=== PATIENT | female | born 1955 | race Caucasian/White ===

== ENCOUNTER 2024-09-06 18:42 | Emergency (ER) | payer MEDICARE, SELFPAY ==
[2024-09-06] VITALS (12 sets, daily range): BP systolic 144–186; BP diastolic 72–103; PULSE 72–94; BMI 21.5
[2024-09-06 19:05] LABS: % Basophils 0.7 % (0-2); % Eosinophils 3.8 % (0-6); % Immature Granulocytes 0.3 % (0-0.5); % Lymphocytes 20.7 % (20.5-51.1); % Neutrophils 70.5 % (42.2-75.2); Absolute Basophils 0.1 10^3/uL (0-0.2); Absolute Eosinophils 0.4 10^3/uL (0-0.7); Absolute Monocytes 0.4 10^3/uL (0.1-0.6); Absolute Neutrophils 6.6 10^3/uL (1.4-6.5); Hematocrit 44.8 % (37.0-47.0); Hemoglobin 15.5 g/dL (12.0-16.0); Mean Corp Hgb Conc. 34.6 g/dL (33.0-37.0); Mean Corpuscular Volume 83.9 fL (81.0-99.0); Mean Platelet Volume 9.2 fL (7.4-10.4); Nucleated Red Blood Cells % 0 %; Platelet Count 230 10^3/uL (130-400); Red Blood Cell Count 5.34 10^6/uL (4.20-5.40); Red Cell Dist. Width 13.1 % (11.5-14.5); White Blood Cell Count 9.4 10^3/uL (4.8-10.8)
[2024-09-06 19:20] LABS: ALT (SGPT) 17 U/L (0-35); AST (SGOT) 26 U/L (14-36); Albumin 4.9 g/dl (3.5-5.0); Alkaline Phosphatase 77 U/L (38-126); Blood Urea Nitrogen 8 mg/dl (7-17); Carbon Dioxide 26 mmol/L (22-30); Chloride 105 mmol/L (98-107); Glucose 108 mg/dl (70-99); Potassium 4.5 mmol/L (3.5-5.1); Sodium 139 mmol/L (135-145); Total Bilirubin 0.7 mg/dl (0.2-1.3); Total Protein 8.7 g/dl (6.3-8.2); eGFR > 60.00
[2024-09-06 19:27] LABS: Troponin I < 0.012 ng/ml
[2024-09-06 22:26] LABS: Urine Albumin 1+ (Neg - Trace); Urine Bilirubin Negative (Negative); Urine Character Clear (Clear); Urine Color Yellow; Urine Glucose Negative (Negative); Urine Ketone 3+ (Negative); Urine Leukocyte 3+ (Negative); Urine Nitrite Negative (Negative); Urine Occult Blood 2+ (Negative); Urine Specific Gravity 1.015 (<1.030); Urine Urobilinogen Negative (Neg - 1+)
[2024-09-06] MEDS: NSS 1000 IV (22:30)
[2024-09-06 22:35] LABS: Urine Urothelial Cell 16-20 /LPF (FEW)
[2024-09-06 22:36] LABS: Urine White Cell 26-30 /HPF (0-5)
[2024-09-06 22:37] LABS: Urine Bacteria Few (Negative); Urine Mucus Moderate
--- NOTE | 2024-09-06 22:43 | ED.GENMED ---
History of Present Illness
General
Chief Complaint: Blood Pressure Problem
Source: patient and family (Daughter at bedside)
Exam Limitations: none
Time Seen by Provider: 09/06/24 21:26
Nursing documentation reviewed up to this point in time: agreed with
History of Present Illness
History of Present Illness:
The patient is a 68-year-old female presenting for evaluation of high blood pressure at home. The symptoms began this morning, and she describes her blood pressure as 180/90 mmHg at home. She typically does not monitor her blood pressure daily but
did so today due to not feeling well. She reports feeling generally weak, and reports having a headache along with feeling nauseous this morning. She also reports a few episode of diarrhea today. She also describes an sensation of
dizziness/lightheadedness.
However�by my assessment�patient states symptoms have completely resolved. She states she feels completely improved and denies any lingering headache, dizziness, nausea.
Today�patient denies any associated fever, chest pain, shortness of breath, or abdominal pain. She has no numbness/tingling or focal weakness. She has no tearing back pain or visual changes. She denies any dysuria.
Over the last two weeks, the patient has experienced some generalized weakness.
Patient denies any known sick contacts.
Patient states that she does not regularly check her blood pressure. She has no documented history of hypertension
Review of Systems
Review of Systems
Allergies reviewed?: Yes
All Other Systems: ROS reviewed and negative except as documented in HPI and ROS
Phy Exam
Physical Exam
Physical Exam:
Vitals: Hypertensive, otherwise vital signs stable. Afebrile
General: Patient is well appearing, no acute distress
Skin: Warm and dry, no rashes or lesions
Head: Normocephalic, atraumatic
Eyes: Sclera nonicteric. EOMs intact. Pupils equal round and reactive bilaterally. No nystagmus.
Throat: Protecting airway
Neck: Normal ROM, no cervical spine tenderness, no meningismus
Cardiac: Regular rate and rhythm, no murmurs.
Pulm: Normal respiratory effort, no wheezes, rales, rhonchi heard on exam
.
Abdomen: Abdomen soft and nontender. No rebound tenderness or guarding. Negative Lindquist sign.
Extremities: No evidence of cyanosis or edema. Strength 5/5 in bilateral upper and lower extremities.
Neuro: AAOx3. CN II-XII grossly intact on examination. No focal neurologic deficits. No facial droop or asymmetry. Fluid speech. Steady gait.
Psychiatric: Normal affect.
Course
Orders/Labs/Results
Orders:
Orders
09/06/24 18:46
ECG [Electrocardiogram (*1)] Urgent
Reason for Study: Hypertension, Benign
EKG- Treatment ONCE
09/06/24 18:56
Complete Blood Count/With Diff Urgent
Comprehensive Metabolic Panel Urgent
Troponin I Urgent
09/06/24 21:47
Orthostatic VS- Treatment ONCE
09/06/24 22:02
0.9% Sodium Chloride 1000 ml [Nss] 1,000 ml IV BOLUS
09/06/24 22:06
Urinalysis Reflex To Culture Urgent
Date Specimen was Collected: 09/06/24
Time Specimen was Collected: 22:03
Urine Microscopic Reflex Cult Urgent
Urine Culture Urgent
MANUELITO Source: U
Specimen Description:
Date Specimen was Collected: 09/06/24
Time Specimen was Collected: 22:03
Abnormal Lab Results
09/06/24 09/06/24
18:56 22:06
Absolute Neuts (auto) 6.6 H 10^3/uL
(1.4-6.5)
Glucose 108 H mg/dl
(70-99)
Total Protein 8.7 H g/dl
(6.3-8.2)
Urine Ketones 3+ A
(Negative)
Ur Occult Blood Reflex 2+ A
(Negative)
Leukocyte Esterase Rfl 3+ A
(Negative)
Urine RBC 3-6 A /HPF
(0-2)
Urine WBC (Reflex) 26-30 A /HPF
(0-5)
Urine Bacteria (Reflex) Few A
(Negative)
Urine Albumin (Reflex) 1+ A
(Neg - Trace)
09/06/24 18:56
09/06/24 18:56
Vital Signs
Initial and Last Documented VS:
Initial Vital Signs
Pulse Resp BP Pulse Ox
89 16 170/103 95
09/06/24 18:43 09/06/24 18:43 09/06/24 18:43 09/06/24 18:43
Last Documented Vital Signs
Temp Pulse Resp BP Pulse Ox
97.7 F 75 20 173/87 98
09/06/24 21:22 09/06/24 23:45 09/06/24 23:45 09/06/24 23:43 09/06/24 23:45
MDM/Problems Addressed
Differential Diagnosis Includes:
Not limited to: Asymptomatic hypertension, dehydration, electrolyte abnormalities, orthostatic hypotension, viral illness, UTI, etc.
MDM/Problems Addressed:
68 y.o female who presents with elevated pressure readings at home, generalized weakness, headache, and diarrhea x 1 day. Symptoms have mostly resolved by my assessment in the ED. She describes headache as gradual onset without other associated
neurologic symptoms. No fever, abdominal pain, or vomiting. No chest pain or shortness of breath. Patient hypertensive on arrival with otherwise stable vitals signs. Physical exam as above. She is very well appearing, in no apparent distress. No
focal neurologic deficits noted. Abdomen benign.
Differential broad although considerations include viral illness, electrolyte abnormalities, acute dehydration, hypertensive emergency, etc.
Labs obtained prior to my evaluation reviewed. CBC and chemistry without any significant abnormalities. Troponin undetectable. EKG without acute ischemic changes. UA somewhat equivocal for infection however favor contamination - will hold abx given
patient without urinary complaints. Very low suspicion for acute intra-abdominal infection given patient afebrile, with no white count, no abdominal pain, and benign abdominal exam. Patient has remained hypertensive to 170s/80s although she is now
asymptomatic and states that she feels completely better. No evidence of end organ damage on exam.
She was found to be somewhat orthostatic and given 1L IVF with improvement in ortho vital signs and symptoms.
Patient is very well appearing and her symptoms have improved. Symptoms possibly somewhat related to orthostasis +/- viral illness. Do not suspect central process or acute infectious process. No evidence of hypertensive emergency. Feel stable for
discharge home w/ PCP f/u as she may need to begin tx for hypertension. Advised to stay well hydrated. Strict return precautions discussed. Patient comfortable with plan.
Chronic conditions affecting care:
N/A
Acute Exacerbation and/or Progression of Chronic Illness:
N/A
*Pulse Oximetry
SaO2: 97
Oxygen Mode of Delivery: Room air
Patient hypoxic: no
*EKG
Interpreted by ED Provider?: Yes
EKG Intrepretation Date: 09/06/24
Interpretation: abnormal
Comparison EKG: no changes
Heart Rate: 86
Rate: normal
Rhythm: sinus
[place]: normal axis
Interval: normal QT interval
QRS Pattern: normal QRS
Ischemia: non-specific ST changes
*Photo Print Specialist Interpretation
Rate: normal
Interpretation: normal
Heart Rate: 76
Rhythm: sinus
*Critical Care Note
Total Time (30-74mins, 75-104mins- exclusive of procedures): Not Applicable
Patient Management
Escalation/DeEscalation of care consider admission/obs:
Admit not indicated
ED Attending Note
-
Portions of this chart may have been created with voice recognition software.� Occasional wrong word or��sound alike� substitutions may have occurred due to the inherent limitations of voice recognition software.
Discharge Plan
Departure
Patient Disposition: Home (Routine Discharge)
Date of Disposition: 09/06/24
Time of Disposition: 23:57
Patient with high blood pressure during this ER visit?: Yes
Condition: Good
Covid-19: Not Applicable
Discharge Problem:
Hypertension, Diarrhea
Instructions: High Blood Pressure (DC), Weakness - ED discharge instructions, BLOOD PRESSURE
Prescriptions:
No Action
fluticasone propion-salmeterol [Wixela Inhub] 100-50 mcg/dose blister with device
1 inh INHALATION R BID
ipratropium bromide 17 mcg/actuation Hfa Aerosol Inhaler
2 puff INHALATION R BID
NAC
1 tab PO DAILY PRN (Reason: supplement)
Vitamin C
1 tab PO DAILY PRN (Reason: supplement)
Vitamin D3
1 tab PO DAILY PRN (Reason: supplement)
magnesium
1 tab PO DAILY PRN (Reason: supplement)
zinc
1 tab PO DAILY PRN (Reason: supplement)
guaifenesin 600 mg Tablet Extended Release 12hr
600 mg PO Q12 Qty: 30 0RF
doxycycline hyclate 100 mg Capsule
100 mg PO Q12 Qty: 10 0RF
methylprednisolone [Medrol (Avtar)] 4 mg tablets,dose pack
See Rx Instructions .ROUTE .COMPLEX Qty: 21 0RF
Rx Instructions:
orally per package directions
Referrals:
UNKNOWN - PT DOES,NOT KNOW [Family Provider]
Activity Restrictions/Additional Instructions:
RETURN TO THE EMERGENCY DEPARTMENT WITH ANY FEVERS, CHILLS, SEVERE HEADACHE, SEVERE BACK PAIN, CHEST PAIN OR SHORTNESS OF BREATH, NUMBNESS/TINGLING EXTREMITIES, SIGNIFICANT WEAKNESS, CHANGES IN VISION, CHANGES IN MENTAL STATUS, OR ANY OTHER CONCERNS
-As discussed�your lab work in the emergency department showed no acute abnormalities. You were given a liter of IV fluids.
- Your blood pressure remained elevated while the department. You should follow closely with primary care to consider starting medication for hypertension. Please monitor your blood pressure once a day and keep a log to follow with primary care
- It is important to stay well-hydrated.
Monitor your symptoms closely and return to the emergency department with any acute worsening/new symptoms or any other concerns
Interventions
Interventions:
*Risk Screen - Suicide Last Done: 09/06/24 21:20
*General Assessment Last Done: 09/06/24 21:20
*Neglect/Abuse Screening Last Done: 09/06/24 21:20
*ED- Fall Risk Assessment Last Done: 09/06/24 21:20
*ED COVID-19 Vaccine History Last Done: 09/06/24 21:20
*Nursing Disposition Last Done: 09/07/24 00:44
ED- Cardiac Assessment Last Done: 09/06/24 21:20
ED- Neurological Assessment Last Done: 09/06/24 21:20
ED- Pulmonary Assessment Last Done: 09/06/24 21:20
Discharge Date and Time
Discharge Date/Time: 09/07/24 00:45
Print Language: URDU
== END 2024-09-07 00:45 | disposition home or self-care (01) ==
LOC: EMR 18:42
PROVIDERS: Emergency Medicine; Physician Assistant; EMERGENCY PHYSICIAN Emergency Medicine
DX: I10 Essential (primary) hypertension (principal); R19.7 Diarrhea, unspecified; R53.1 Weakness
CPT/HCPCS: 96360; 99284; 80053; 81003; 81015; 84484; 85025; 87086; 93005